=== PATIENT | male | born 1975 | race Caucasian/White ===

== ENCOUNTER 2018-05-28 12:04 | Day surgery (SDC) | payer OTHER ==
[~2018-05-28 12:04] MED LIST: Betamethasone Acetate/Betamethasone Sod Phosphate 30 MG/5 ML MDV ONE; Iopamidol 408 MG/ML 50 ML SDV ONE; Lidocaine 2% 5 ML SDV ONE; Ropivacaine 0.5% 5 MG/ML 30 ML SDV ONE
--- NOTE | 2018-05-28 15:30 | OR ---
SURGEON: Deloris Larson D.O. DATE OF PROCEDURE: 05/28/2018 OR STAFF PRESENT: 1. Mirna Dukes RN. 2. Verena Ochoa RN. 3. RT Phyllis. WOUND CLASS: I. PREOPERATIVE DIAGNOSES: 1. Chronic low back pain. 2. Lumbar spondylosis. 3. Lumbar facet syndrome. POSTOPERATIVE DIAGNOSES: 1. Chronic low back pain. 2. Lumbar spondylosis. 3. Lumbar facet syndrome. PROCEDURES PERFORMED: 1. Right L4-L5 facet joint injection. 2. Right L5-S1 facet joint injection. 3. Left L4-L5 facet joint injection. 4. Left L5-S1 facet joint injection. 5. Fluoroscopic guidance for needle placement. 6. Local with oral valium for sedation. SCREENING QUESTIONS: The patient answered "No" to all the following questions: 1. Are you allergic to iodine, Betadine or latex? 2. Do you have a bleeding disorder? 3. Are you on anti-inflammatories or blood thinners? 4. Do you have any current local or systemic infections? MEDICAL NECESSITY: This is a patient with chronic low back pain who comes in for the above diagnostic procedure. This procedure is being performed in accordance with national guidelines written by the [employer]; please see medical necessity note in chart. DESCRIPTION OF PROCEDURE: The patient had the procedure thoroughly explained including risks, benefits and alternatives. Consent was signed in my clinic indicating understanding and willingness to proceed. The patient presented to [facility] and was escorted to the dressing room to disrobe and change into a hospital gown. Preoperative history and screening were performed by my nurse. Vital signs were taken and stable. The patient reported that Valium 10 milligrams was taken prior to the procedure. The patient was brought back to the procedure room and placed in the prone position on the procedure room table. A pillow was placed under the abdomen in order to flatten the lumbar lordosis. The back was prepped with ChloraPrep and sterilely draped. All personnel in the procedure room were dressed in appropriate attire including surgical scrubs, head and shoe covers. This was to ensure sterility while in the treatment room. During the time fluoroscopy was in use all personnel in the operating room wore lead ortiz with thyroid collars. Sterile technique was used during the procedure. Then, the fluoroscope was positioned to provide a right oblique view for the right L4 medial branch. This was begun by anesthetizing the skin and soft tissues. The fluoroscope was positioned and a sterile 22-gauge 3.5 inch needle was placed at the junction of the transverse process in the superior articular process of the L5 vertebral body. Precise needle placement was confirmed by fluoroscopy. Then, 0.2 cubic centimeters of Isovue-200 contrast dye was injected through microbore tubing under live fluoroscopy and showed no intravascular flow pattern and adequate flow over the target medial branch. After negative aspiration, 0.5 cubic centimeters of 0.5% Ropivacaine was injected without complications. The fluoroscope was then positioned to provide a right L5 dorsal ramus block. This was begun by anesthetizing the skin and soft tissues over the right sacral sulcus. Then, using fluoroscopic guidance, a sterile 22-gauge 3.5 inch spinal needle was positioned at the right sacral ala. Precise needle placement was confirmed by fluoroscopy in AP and oblique views, and 0.2 cubic centimeters of Isovue-200 contrast dye was injected through microbore tubing under live fluoroscopy and showed no intravascular flow pattern and adequate flow over the target nerves. After negative aspiration, 0.5 cubic centimeters of 0.5% Ropivacaine was injected. No complications were noted. The fluoroscope was positioned then to provide a left L4 medial branch block. The skin was anesthetized. Then, a 22-gauge 3.5 inch spinal needle was positioned at the junction of the transverse process in the superior articular process of the L5 vertebral body on the left. Precise needle placement was confirmed by fluoroscopy and with 0.2 cubic centimeters of Isovue-200 contrast dye injected through microbore tubing showing no intravascular flow pattern and adequate flow over the target medial branch of L4 on the left. Then, 0.5 cubic centimeters of 0.5% Ropivacaine was injected after negative aspiration without complications. Then, the fluoroscope was positioned for the left L5 dorsal ramus block. This was begun by anesthetizing the skin and soft tissues. Then, with fluoroscopic guidance a sterile 22-gauge 3.5 inch spinal needle was positioned at the left sacral ala. Precise needle placement was confirmed with 0.2 cubic centimeters of Isovue-200 contrast dye injected through microbore tubing under live fluoroscopy showing no intravascular flow pattern and adequate flow over the target L5 nerve. Then, 0.5 cubic centimeters of 0.5% Ropivacaine was injected after negative aspiration without complications. The procedure was well tolerated and vital signs were stable during and after the procedure. The staff escorted the patient to the recovery area. The patient was given both oral and written discharge and followup instructions. The patient will follow up with a pain diary which will be evaluated over this evening doing things that would normally cause pain. We will evaluate the efficacy of the diagnostic lumbar medial branch blocks as the patient will follow up in the clinic the next day. The patient was given both oral and written discharge and followup instructions. The patient voiced understanding including understanding of those signs and symptoms that would require emergency care and knows how to contact the office if there are any questions or concerns in the meantime. PREOPERATIVE PAIN: 5/10. POSTOPERATIVE PAIN: 0/10. FOLLOWUP: Follow up in the pain clinic in 3 weeks. ELVIA / CARLA /[id number]
== END 2018-05-28 14:20 ==
LOC: MW.SDS 12:04
PROVIDERS: ATTEND Anesthesiology
DX: G89.29 Other chronic pain (principal); M54.5 Low back pain; M53.86 Other specified dorsopathies, lumbar region; M47.896 Other spondylosis, lumbar region; M79.18 Myalgia, other site
CPT/HCPCS: 64493; 64494; J0702; J2795; Q9966

== ENCOUNTER 2019-03-04 11:37 | Day surgery (SDC) | payer OTHER ==
[2019-03-04] MEDS ORDERED: Ropivacaine 0.5% 5 MG/ML 30 ML SDV ONE (11:42)
[2019-03-04] MEDS ORDERED: Iopamidol 200-M 10 ML vial ITHECAL ONE (11:42)
[2019-03-04] MEDS ORDERED: Lidocaine 2% 5 ML SDV ONE (11:42)
[2019-03-04] MEDS ORDERED: Betamethasone Acetate/Betamethasone Sod Phosphate 30 MG/5 ML MDV ONE (11:42)
--- NOTE | 2019-03-04 21:29 | OR ---
SURGEON: Deloris Larson D.O. DATE OF PROCEDURE: 03/04/2019 ASSISTANTS: OR staff present: 1. Verena Ochoa RN. 2. RT Phyllis. 3. Michael Lorenzo RN. WOUND CLASS: I. PREOPERATIVE DIAGNOSES: 1. Lumbar facet arthropathy. 2. Lumbar degenerative disk disease. 3. Chronic low back pain. POSTOPERATIVE DIAGNOSES: 1. Lumbar facet arthropathy. 2. Lumbar degenerative disk disease. 3. Chronic low back pain. PROCEDURES PERFORMED: 1. Right L3, L4, L5 diagnostic and therapeutic medial branch blocks. 2. Left L3, L4, L5 medial branch blocks, diagnostic and therapeutic. 3. Fluoroscopic guidance for needle placement. 4. Local with oral Valium for sedation. SCREENING QUESTIONS: The patient answered "No" to all the following questions: 1. Are you allergic to iodine, Betadine or latex? 2. Do you have a bleeding disorder? 3. Are you on anti-inflammatories or blood thinners? 4. Do you have any current local or systemic infections? MEDICAL NECESSITY: This is a patient with chronic low back pain who comes in for the above diagnostic procedure. This procedure is being performed in accordance with national guidelines written by the [employer]; please see medical necessity note in chart. DESCRIPTION OF PROCEDURE: The patient had the procedure thoroughly explained including risks, benefits and alternatives. Consent was signed in my clinic indicating understanding and willingness to proceed. The patient presented to [facility] and was escorted to the dressing room to disrobe and change into a hospital gown. Preoperative history and screening were performed by my nurse. Vital signs were taken and stable. The patient reported that Valium 10 milligrams was taken prior to the procedure. The patient was brought back to the procedure room and placed in the prone position on the procedure room table. A pillow was placed under the abdomen in order to flatten the lumbar lordosis. The back was prepped with ChloraPrep and sterilely draped. All personnel in the procedure room were dressed in appropriate attire including surgical scrubs, head and shoe covers. This was to ensure sterility while in the treatment room. During the time fluoroscopy was in use all personnel in the operating room wore lead ortiz with thyroid collars. Sterile technique was used during the procedure. The fluoroscope was positioned to provide a right oblique view. Then the right L3 medial branch block was begun by anesthetizing the skin and soft tissues with 2 cubic centimeters of 2% Preservative-Free Lidocaine with a 25-gauge 1.5 inch needle. There were no signs of infection at the site of needle skin insertions. Using fluoroscopic guidance a sterile 22-gauge 3.5 inch spinal needle was positioned at the junction of the transverse process with the superior articular process of the L4 vertebral body. Precise needle placement was confirmed by fluoroscopy and 0.2 cubic centimeters of IsoVue-200 contrast dye which was injected through microbore tubing under live fluoroscopy and showed no intravascular flow pattern and adequate flow over the target L3 medial branch. Then 0.5 cubic centimeters of 0.5% Ropivacaine Preservative-Free was injected slowly without complications after negative aspiration. Then the fluoroscope was positioned to provide a right oblique view for the right L4 medial branch. This was begun by anesthetizing the skin and soft tissues. The fluoroscope was positioned and a sterile 22-gauge 3.5 inch needle was placed at the junction of the transverse process in the superior articular process of the L5 vertebral body. Precise needle placement was confirmed by fluoroscopy. Then 0.2 cubic centimeters of IsoVue-200 contrast dye was injected through microbore tubing under live fluoroscopy and showed no intravascular flow pattern and adequate flow over the target medial branch. After negative aspiration, 0.5 cubic centimeters of 0.5% Ropivacaine was injected without complications. The fluoroscope was then positioned to provide a right L5 dorsal ramus block. This was begun by anesthetizing the skin and soft tissues over the right sacral sulcus. Then using fluoroscopic guidance, a sterile 22-gauge 3.5 inch spinal needle was positioned at the right sacral ala. Precise needle placement was confirmed by fluoroscopy in AP and oblique views, and 0.2 cubic centimeters of IsoVue-200 contrast dye was injected through microbore tubing under live fluoroscopy and showed no intravascular flow pattern and adequate flow over the target nerves. After negative aspiration, 0.5 cubic centimeters of 0.5% Ropivacaine was injected. No complications were noted. Then attention was turned to the left side. The fluoroscope was positioned to provide a left oblique view for the left L3 medial branch block. This was begun by anesthetizing the skin and soft tissues. Then a 22-gauge 3.5 inch needle was positioned at the junction of the transverse process and the superior articular process at the left L4 vertebral body. Precise needle placement was confirmed by fluoroscopy with 0.2 cubic centimeters of IsoVue-200 contrast dye injected through microbore tubing under live fluoroscopy showing no intravascular flow pattern and adequate flow over the target medial branch of L3 on the left. After negative aspiration, 0.5 cubic centimeters of 0.5% Ropivacaine was injected without complications. The fluoroscope was positioned then to provide a left L4 medial branch block. The skin was anesthetized. Then a 22-gauge 3.5 inch spinal needle was positioned at the junction of the transverse process in the superior articular process of the L5 vertebral body on the left. Precise needle placement was confirmed by fluoroscopy and with 0.2 cubic centimeters of IsoVue-200 contrast dye injected through microbore tubing showing no intravascular flow pattern and adequate flow over the target medial branch of L4 on the left. Then 0.5 cubic centimeters of 0.5% Ropivacaine was injected after negative aspiration without complications. Then the fluoroscope was positioned for the left L5 dorsal ramus block. This was begun by anesthetizing the skin and soft tissues. Then with fluoroscopic guidance a sterile 22-gauge 3.5 inch spinal needle was positioned at the left sacral ala. Precise needle placement was confirmed with 0.2 cubic centimeters of IsoVue-200 contrast dye injected through microbore tubing under live fluoroscopy showing no intravascular flow pattern and adequate flow over the target L5 nerve. The procedure was well tolerated and vital signs were stable during and after the procedure. The staff escorted the patient to the recovery area. The patient was given both oral and written discharge and followup instructions. The patient will follow up with a pain diary which will be evaluated over this evening doing things that would normally cause pain. We will evaluate the efficacy of the diagnostic lumbar medial branch blocks as the patient will follow up in the clinic the next day. The patient was given both oral and written discharge and followup instructions. The patient voiced understanding including understanding of those signs and symptoms that would require emergency care and knows how to contact the office if there are any questions or concerns in the meantime. PREOPERATIVE PAIN: 6/10. POSTOPERATIVE PAIN: 0/10. FOLLOWUP: Follow up in the Pain Clinic in 4 weeks. HOGNIKKI / CARLA /[id number]
== END 2019-03-04 14:30 ==
LOC: MW.SDS 11:37
PROVIDERS: ATTEND Anesthesiology
DX: G89.29 Other chronic pain (principal); M54.5 Low back pain; M12.88 Other specific arthropathies, not elsewhere classified, other specified site; M51.36 Other intervertebral disc degeneration, lumbar region; M79.18 Myalgia, other site; M47.816 Spondylosis without myelopathy or radiculopathy, lumbar region; E78.00 Pure hypercholesterolemia, unspecified; G47.30 Sleep apnea, unspecified; Z79.1 Long term (current) use of non-steroidal anti-inflammatories (NSAID); Z79.899 Other long term (current) drug therapy
CPT/HCPCS: 64450; 64493-50; 64494-50; J0702; J2001; J2795; Q9966

== ENCOUNTER 2019-08-10 11:30 | Day surgery (SDC) | payer OTHER ==
[~2019-08-10 11:30] MED LIST changes: +Betamethasone Acetate/Betamethasone Sod Phosphate 30 MG/5 ML MDV EPIDUR ONE; -Betamethasone Acetate/Betamethasone Sod Phosphate 30 MG/5 ML MDV ONE; +Iopamidol 200-M 10 ML vial ITHECAL ONE; -Iopamidol 408 MG/ML 50 ML SDV ONE; +Lidocaine 2% 5 ML SDV INJECT ONE; -Lidocaine 2% 5 ML SDV ONE; +Ropivacaine 0.5% 5 MG/ML 30 ML SDV INJECT ONE; -Ropivacaine 0.5% 5 MG/ML 30 ML SDV ONE
--- NOTE | 2019-08-10 19:36 | OR ---
SURGEON: Deloris Larson D.O. DATE OF PROCEDURE: 08/10/2019 PRIMARY SURGEON: Deloris Larson D.O. SEWER MAINTENANCE SUPERVISOR: OR staff present: 1. Negrito Stoner RN. 2. Cruz Mg RN. 3. Iris Schmid RT. WOUND CLASS: I. PREOPERATIVE DIAGNOSES: 1. Lumbar degenerative disk disease, L4-5, L5-S1. 2. Lumbar spondylosis. 3. Lumbar facet syndrome, L4-5, L5-S1, bilateral. POSTOPERATIVE DIAGNOSES: 1. Lumbar degenerative disk disease, L4-5, L5-S1. 2. Lumbar spondylosis. 3. Lumbar facet syndrome, L4-5, L5-S1, bilateral. PROCEDURES PERFORMED: 1. Right L3, L4, L5 radiofrequency ablation. 2. Left L3, L4, L5 radiofrequency ablation. 3. Fluoroscopic guidance for needle placement. 4. Local with oral Valium for sedation. JOINTS FOR RADIOFREQUENCY ABLATION: Bilateral L4-5 and L5-S1 zygapophyseal joint. SCREENING QUESTIONS: The patient answered "No" to all the followin. Are you allergic to iodine, Betadine or latex? 2. Do have a bleeding disorder? 3. Are you on any anti-inflammatories or blood thinners? 4. Do you have any current local or systemic infections? DESCRIPTION OF PROCEDURE: The patient had the procedure thoroughly explained including all possible risks, benefits and alternatives. A consent was signed in my clinic indicating understanding and willingness to proceed. The patient presented to [facility] and was escorted to the dressing room to disrobe and change into a hospital gown. Preoperative vital signs were taken. The patient reported taking Valium 10 milligrams at home prior to the procedure. The patient was brought to the procedure room and placed in the prone position on the procedure room table. A pillow was placed under the hips in order to flatten the lumbar lordosis. The back was prepped with ChloraPrep times three and sterilely draped. All personnel in the operating room were dressed in appropriate attire including surgical scrubs, head and shoe covers. This was to ensure sterility while in the treatment room. During the time fluoroscopy was in use all personnel in the operating room wore lead ortiz with thyroid collars. Sterile technique was used during the procedure. The skin overlying the target nerves were anesthetized with 2% Lidocaine Preservative-Free in a sterile 27-gauge 1.5 inch needle. The deep tissues were likewise infiltrated. Standard insulated radiofrequency probe needles with 10 millimeter active tips were inserted at the appropriate sites for the left L3, L4 MEDIAL BRANCH and L5 dorsal ramus nerves and right L3, L4 MEDIAL BRANCH and L5 dorsal ramus nerves for radiofrequency ablation. Proper placement was determined both fluoroscopically and with test stimulation at each primary site with 50 hertz for sensory and 2 hertz for motor stimulation. No radicular stimulation was identified and no distal motor activity was noted in the lower extremities. Radiofrequency denervation was performed at each site for 90 seconds at 80 degrees centigrade and repeated times two. The patient's nerves were numbed with a mixture of 12 milligrams of Celestone and 3 cubic centimeters of 2% Lidocaine and 3 cubic centimeters of 0.5% Ropivacaine. This was done for patient comfort prior to lesioning; 1 cubic centimeter total was injected at each site. Then the radiofrequency ablation needles were advanced under direct fluoroscopy and viewed in AP and oblique views. Stimulatory patterns were found to be excellent. Each nerve was lesioned twice. The patient tolerated the procedure well and had no complications. The vital signs were stable during and after the procedure. The staff escorted the patient to the recovery room area and the patient was released in stable condition after a brief stay in the recovery room monitored by the nurse. The patient was given both oral and written discharge and follow up instructions. The patient understands and knows to contact the office if there are any questions or concerns in the meantime. The patient has an appointment to follow up in three weeks. PREOPERATIVE PAIN: 03/03. POSTOPERATIVE PAIN: 10/04. FOLLOWUP: Follow up in the Pain Clinic in 1 month. HOGNIKKI / CARLA /[id number] CALLY
== END 2019-08-10 14:30 | disposition home or self-care (01) ==
LOC: MW.SDS 11:30
PROVIDERS: ATTEND Anesthesiology
DX: M51.36 Other intervertebral disc degeneration, lumbar region (principal); M96.1 Postlaminectomy syndrome, not elsewhere classified; M47.816 Spondylosis without myelopathy or radiculopathy, lumbar region; M79.18 Myalgia, other site; G47.30 Sleep apnea, unspecified; Z79.1 Long term (current) use of non-steroidal anti-inflammatories (NSAID); Z79.899 Other long term (current) drug therapy
CPT/HCPCS: 64635; 64636; J0702

== ENCOUNTER 2020-08-24 06:34 | Day surgery (SDC) | payer OTHER ==
[~2020-08-24 06:34] MED LIST changes: -Betamethasone Acetate/Betamethasone Sod Phosphate 30 MG/5 ML MDV EPIDUR ONE; -Iopamidol 200-M 10 ML vial ITHECAL ONE; +Lactated Ringers 1,000 ML IV SCH; -Lidocaine 2% 5 ML SDV INJECT ONE; -Ropivacaine 0.5% 5 MG/ML 30 ML SDV INJECT ONE
[2020-08-24] MEDS ORDERED: Propofol 200 MG/20 ML SDV ONE ×2 (07:09→07:47)
[2020-08-24] MEDS ORDERED: Lidocaine 2% 5 ML SDV ONE (07:09)
[2020-08-24] MEDS ORDERED: fentaNYL 100 MCG/2 ML SDV ONE (07:09)
--- NOTE | 2020-08-24 07:14 | PCM.PREANE ---
Preanesthetic Assessment - Anesthesia/Transfusion/Family Hx Anesthesia History: Prior Anesthesia Without Reaction Family History of Anesthesia Reaction: No Transfusion History: No Prior Transfusion(s) - Review of Systems General: No Symptoms Pulmonary: No Symptoms Cardiovascular: No Symptoms Gastrointestinal: No Symptoms Neurological: No Symptoms Other: Reports: None - Physical Assessment NPO Status Date: 08/23/20 Vital Signs: Last Vital Signs Temp 97.9 F 08/24/20 06:44 Pulse 67 08/24/20 06:44 Resp 15 08/24/20 06:44 BP 178/91 H 08/24/20 06:44 Pulse Ox 96 08/24/20 06:44 Height: 6 ft 1 in Weight: 136.078 kg ASA Class: 2 Mental Status: Alert & Oriented x3 Airway Class: Mallampati = 2 Dentition: Reports: Normal Dentition ROM/Head Extension: Full Lungs: Clear to Auscultation, Normal Respiratory Effort Cardiovascular: Regular Rate, Regular Rhythm - Allergies Allergies/Adverse Reactions: Allergies Allergy/AdvReac Type Severity Reaction Status Date / Time lactose Allergy Nausea Verified 08/22/20 09:25 - Blood Blood Available: No - Anesthesia Plan Pre-Op Medication Ordered: None - Acknowledgements Anesthesia Type Planned: General Anesthesia Pt an Appropriate Candidate for the Planned Anesthesia: Yes Alternatives and Risks of Anesthesia Discussed w Pt/Guardian: Yes Pt/Guardian Understands and Agrees with Anesthesia Plan: Yes Additional Comments: PMH: MO, chr pain synd, ILA PLAN: tiva PreAnesthesia Questionnaire HEENT History: Reports: Impaired Vision Other HEENT History: wears glasses Cardiovascular History: Reports: Hypertension Respiratory History: Reports: Sleep Apnea Other Respiratory History: uses CPAP machine Gastrointestinal History: Reports: None Genitourinary History: Reports: None Musculoskeletal History: Reports: Neck Pain, Chronic Neurological History: Reports: None Psychiatric History: Reports: None Endocrine/Metabolic History: Reports: Obesity/BMI 30+ Hematologic History: Reports: None Immunologic History: Reports: None Oncologic (Cancer) History: Reports: None Dermatologic History: Reports: None - Infectious Disease History Infectious Disease History: Reports: Chicken Pox Other Infectious Disease History: when a child - Past Surgical History Head Surgeries/Procedures: Reports: None HEENT Surgical History: Reports: None Cardiovascular Surgical History: Reports: None GI Surgical History: Reports: Colonoscopy Male Surgical History: Reports: None Endocrine Surgical History: Reports: None Musculoskeletal Surgical History: Reports: Shoulder Surgery, Other (See Below) Other Musculoskeletal Surgeries/Procedures:: states had left shoulder surgery in the past and had neck surgery x2 with placement of rods and screws, states had fusion from C-5 to T1 Dermatological Surgical History: Reports: None - SUBSTANCE USE Tobacco Use Status *Q: Never Tobacco User - HOME MEDS Home Medications: Home Meds Baclofen 1 tab PO TID 08/22/20 [History] Diclofenac Sodium [Diclo Gel] 1 applic TOP QID 08/22/20 [History] Fish Oil/[place]-3 Fatty Acids [Fish Oil 1,000 MG] 1 tab PO BID 08/22/20 [History] Meloxicam [Mobic] 1 tab PO DAILY 08/22/20 [History] Naltrexone HCl 1 dose PO ASDIRECTED 08/22/20 [History] Sildenafil [Viagra] 0.5 tab PO ASDIRECTED 08/22/20 [History] Testosterone Cypionate [Depo-Testosterone] 1 dose IM ASDIRECTED 08/22/20 [History] Vitamin B Complex 1 tab PO BID 08/22/20 [History] amLODIPine Besylate [Amlodipine Besylate] 1 tab PO DAILY 08/22/20 [History] gemfibroziL [Gemfibrozil] 1 tab PO DAILY 08/22/20 [History] - CURRENT (IN HOUSE) MEDS Current Meds: Current Medications Lactated Ringer's (Ringers, Lactated) 1,000 mls @ 125 mls/hr IV ASDIRECTED MILAGROS Last Admin: 08/24/20 06:55 Dose: 125 mls/hr Documented by: Discontinued Medications Fentanyl (Sublimaze) Confirm Administered Dose 100 mcg .ROUTE .STK-MED ONE Stop: 08/24/20 07:10 Lidocaine (Xylocaine-Mpf 2%) Confirm Administered Dose 5 ml .ROUTE .STK-MED ONE Stop: 08/24/20 07:10 Propofol (Diprivan 20 Ml) Confirm Administered Dose 400 mg .ROUTE .STK-MED ONE Stop: 08/24/20 07:10
[2020-08-24] MEDS ORDERED: Glycopyrrolate 0.2 MG/ML SDV ONE (07:54)
--- NOTE | 2020-08-24 08:14 | PCM.POSTAN ---
POST ANESTHESIA ASSESSMENT - MENTAL STATUS Mental Status: Alert, Oriented - VITAL SIGNS Vital Signs: Last Vital Signs Temp 97.9 F 08/24/20 06:44 Pulse 67 08/24/20 06:44 Resp 15 08/24/20 06:44 BP 178/91 H 08/24/20 06:44 Pulse Ox 96 08/24/20 06:44 - RESPIRATORY Respiratory Status: Respiratory Rate WNL, Airway Patent - CARDIOVASCULAR CV Status: Pulse Rate WNL, Blood Pressure Stable - GASTROINTESTINAL GI Status: No Symptoms - POST OP HYDRATION Hydration Status: Adequate & Stable
--- NOTE | 2020-08-24 08:14 | PCM.OPNOTE ---
- General Post-Op/Procedure Note Date of Surgery/Procedure: 08/24/20 Operative Procedure(s): colonoscopy with polypectomies Findings: small, slightly whiteish lesion at 110 cm - polyp vs scar tissue small likely hyperplastic polyps at 10 cm dictation number [id number] Pre Op Diagnosis: Family history of colon cancer Post-Op Diagnosis: colon polyps Primary Surgeon: Hunter Small Complications: None Condition: Good
--- NOTE | 2020-08-24 08:14 | PCM48HPAN ---
Post Anesthesia Note - EVALUATION WITHIN 48HRS OF ANESTHETIC Vital Signs in Normal Range: Yes Patient Participated in Evaluation: Yes Respiratory Function Stable: Yes Airway Patent: Yes Cardiovascular Function Stable: Yes Hydration Status Stable: Yes Pain Control Satisfactory: Yes Nausea and Vomiting Control Satisfactory: Yes Mental Status Recovered: Yes Vital Signs: Last Vital Signs Temp 97.9 F 08/24/20 06:44 Pulse 67 08/24/20 06:44 Resp 15 08/24/20 06:44 BP 178/91 H 08/24/20 06:44 Pulse Ox 96 08/24/20 06:44
--- NOTE | 2020-08-24 11:26 | OR ---
SURGEON: TRIXIE ELIZABETH MD DATE OF PROCEDURE: 08/24/2020 PREOPERATIVE DIAGNOSES: 1. Family history of colon cancer. 2. History of colon polyps. POSTOPERATIVE DIAGNOSES: 1. One small flat whitish lesion at about 110 cm in the ascending colon, likely either a small polyp or potentially scar from previous polypectomies. 2. Small, likely hyperplastic polyps at about 10 cm. PROCEDURE PERFORMED: 1. Colonoscopy. 2. Cold biopsy polypectomies. PRIMARY SURGEON: Trixie Elizabeth MD. ANESTHESIA: With anesthesiologist. WITHDRAWAL TIME: 15 minutes. LIMITATIONS: None. EXTENT OF COLONOSCOPY: To the cecum. BOWEL PREP: Very good. REASON FOR PROCEDURE: Patient is a pleasant 45-year-old gentleman. He has had multiple colonoscopies in the past, the last one was about 4 to 5 years ago, and he says he has had polyps in the past. He does say he occasionally has some blood in the stool. His mother had colon cancer in her early 60s. PROCEDURE IN DETAIL: Physical examination was performed. Major risks and benefits associated with the procedure were explained to the patient in detail. Patient verbalized understanding of the same. Patient was then connected to appropriate monitoring devices and IV started. EKG, pulse, pulse oximetry, blood pressure, capnography, and monitoring throughout the procedure. Continuous oxygen and sedation were provided by the anesthesiologist. The patient was placed in the left lateral decubitus position. Sedation was began. After adequate sedation was achieved, digital rectal exam was performed. No rectal masses or polyps were felt. Now, a well-lubricated Olympus colonoscope was entered in the rectum and advanced under direct visualization to the level of cecum. Cecum was identified by both visual and anatomic landmarks. Photographs were taken of the appendiceal orifice and cecal cap. Scope was then slowly withdrawn in a somewhat circular fashion looking at the color, texture, anatomy, and integrity of the mucosa from the cecum to the anal canal. The patient did have a very good bowel prep with some very minimal liquid stool which was suctioned and irrigated out for excellent look at the mucosa. At about 110 cm in what appeared to be the ascending colon, patient had a small flat slightly whitish area, this could be some type of flat polyp or this could also just be some scar tissue from previous polypectomies. This was removed with cold biopsy polypectomy. The scope was gradually withdrawn. The patient did have some fairly more prominent folds in his colon. I did spend some time trying to look and make sure I got on the backside of these. Scope was continued to be withdrawn. The patient had 3 small flat hyperplastic-looking polyps at about 10 cm in the rectum. These were removed with cold biopsy polypectomy. Scope was retroflexed in the rectum. He had some noninflamed internal hemorrhoids. The scope was then completely removed and procedure was terminated. ENDOSCOPIC DIAGNOSES: 1. Whitish lesion at 110 cm, polyp versus scar tissue. 2. Small polyps in the rectum at about 10 cm, likely hyperplastic. RECOMMENDATIONS: Followup colonoscopy will depend on pathology, but most likely another one in 5 years because of his family history, sooner if he develops signs and symptoms such as change in bowel habits or blood in the stool. FABIO AGUIRRE /[id number]
== END 2020-08-24 08:48 | disposition home or self-care (01) ==
LOC: MW.SDS 06:34
PROVIDERS: ATTEND Surgery
DX: Z12.11 Encounter for screening for malignant neoplasm of colon (principal); K63.5 Polyp of colon; K64.8 Other hemorrhoids; K63.89 Other specified diseases of intestine; I10 Essential (primary) hypertension; G47.33 Obstructive sleep apnea (adult) (pediatric); G89.4 Chronic pain syndrome; E66.9 Obesity, unspecified; Z68.39 Body mass index [BMI] 39.0-39.9, adult; Z80.0 Family history of malignant neoplasm of digestive organs; Z79.899 Other long term (current) drug therapy; Z88.8 Allergy status to other drugs, medicaments and biological substances
CPT/HCPCS: 45380; 88305; J2001; J2704; J3010; J3490; J7120; 00812